=== PATIENT | male | born 1995 | race Caucasian/White ===

== ENCOUNTER 2018-12-01 19:17 | Emergency (ER) | payer SELFPAY ==
[~2018-12-01] VITALS: Ht 177.8 cm; Wt 82.6 kg
[2018-12-01 19:25] VITALS: Ht 177.8 cm; Wt 82.6 kg
[2018-12-01 22:44] VITALS: BP 122/35
== END 2018-12-01 22:44 | disposition home or self-care (01) ==
LOC: ED 19:17
DX: S01.111A Laceration without foreign body of right eyelid and periocular area, initial encounter (principal); W18.2XXA Fall in (into) shower or empty bathtub, initial encounter; Y93.89 Activity, other specified; Y92.89 Other specified places as the place of occurrence of the external cause; Y99.8 Other external cause status
CPT/HCPCS: J2001